=== PATIENT | male | born 1990 | race Caucasian/White ===

== ENCOUNTER 2018-02-04 12:50 | Outpatient (CLI) | payer OTHER ==
--- NOTE | 2018-02-04 14:56 | CT ---
CT ABDOMEN AND PELVIS WITHOUT ORAL OR IV CONTRAST: Date: 02/04/18 HISTORY: Urinary calculi. History of two surgeries on the left kidney and one on the right following a stone r emoval. FINDINGS: Absence of oral and IV contrast reduces the sensitivity of exam, particularly for evaluation of solid organs and bowel. The lung bases are clear. No free air or free fluid seen in the abdomen or pelvis. No calcified galls tones are noted. A normal appearing appendix is seen. There are bilateral renal calculi, the largest on the right measuring 4 mm, and on the left measuring 17 and 16 mm, respectively. There are postop changes in the inferior aspect of the left kidney. Ther e is hydronephrosis in the left kidney. The left renal pelvis and ureter are not abnormally dilated. No right-sided hydroureteronephrosis seen. No calculi seen in the ureters or the urinary bladder. IMPRESSION: 1. Bilateral renal calculi. 2. Probable left-sided hydronephrosis. Further evaluation with CT urography is recommended. POS: [id number]
== END 2018-02-04 12:51 | disposition home or self-care (01) ==
LOC: SCSCT 12:50
PROVIDERS: ATTEND Urology
DX: N20.0 Calculus of kidney (principal)
CPT/HCPCS: 74176